=== PATIENT | male | born 1945 | race African-American/Black ===

== ENCOUNTER 2024-07-01 12:48 | Emergency (ER) | payer OTHER ==
[2024-07-01] MEDS ORDERED: AFRIN NASAL MIST 15 ML BOT ONE (14:19)
[2024-07-01] MEDS ORDERED: Oxymetazoline HCl 0.05% ( 15 ML ) NASAL SCH (14:30)
[2024-07-01] MEDS ORDERED: Amoxicillin/Potassium Clav 875 MG TAB ONE (15:07)
[2024-07-01] MEDS ORDERED: Tranexamic Acid 1,000 MG/10 ML VIAL ONE (15:20)
[2024-07-01 15:24] LABS: #Basophils 0.03 10x3/uL (0.0-0.2); #Eosinophils 0.07 10x3/uL (0.0-0.5); #Monocytes 0.73 10x3/uL (0.0-1.1); #Neutrophils 5.17 10x3/uL (1.5-8.4); %Basophils 0.4 % (0.0-2.0); %Eosinophils 0.9 % (0.0-6.0); %Lymphocytes 20.2 % (18.0-47.0); %Monocytes 9.6 % (0.0-10.0); %Neutrophils 68.2 % (40.0-75.0); Hemoglobin 10.3 g/dL (13.5-17.5); Mean Corpuscular HGB CONC 34.3 g/dL (32.0-36.0); Mean Corpuscular Hemoglobin 35.4 pg (27.0-33.0); Mean Corpuscular Volume 103.1 fL (81.2-95.1); Mean Platelet Volume 11.3 fL (7.4-10.4); Platelet Count 96 10x3/uL (150-450); RBC Distribution Width 14.2 % (11.5-14.5); Red Blood Cell (RBC) Count 2.91 10x6/uL (4.32-5.72); White Blood Cell (WBC) Count 7.6 10x3/uL (3.5-10.5)
[2024-07-01 15:35] LABS: INR-International Normal Ratio 1.3; PTT 27.7 sec (22.0-33.0); Prothrombin Time 13.5 sec (9.5-12.1)
[2024-07-01 15:55] LABS: Large Platelets SLIGHT (None Seen); Macrocytosis SLIGHT = 6-15 cells (100X) (0-5/hpf); Ovalocytes SLIGHT = 2-5 cells (100X) (0-1/hpf)
[2024-07-01 15:56] LABS: Platelet Adequacy Comment Appears Decreased
== END 2024-07-01 16:38 | disposition home or self-care (01) ==
LOC: CSHERS 12:48
DX: R04.0 Epistaxis (principal); I12.9 Hypertensive chronic kidney disease with stage 1 through stage 4 chronic kidney disease, or unspecified chronic kidney disease; E11.22 Type 2 diabetes mellitus with diabetic chronic kidney disease; N18.9 Chronic kidney disease, unspecified; I48.91 Unspecified atrial fibrillation
CPT/HCPCS: 30901; 36415; 85025; 85610; 85730